=== PATIENT | female | born 1940 | race Caucasian/White ===

== ENCOUNTER 2016-11-06 03:47 | Observation (INO) | payer MEDICARE, OTHER ==
[~2016-11-06] VITALS: Ht 160 cm; Wt 57.3 kg
[2016-11-06] VITALS (14 sets, daily range): BP systolic 109–162; BP diastolic 56–75; PULSE 88–108; RESP 16–22; TEMP 97.8–100.2; O2SAT 94–100
[~2016-11-06 03:47] MED LIST: BISA5TAB PO; COLY4000S PO; FISH1000 PO; GLUCTAB OR; LORT5TAB PO; METH1TAB29 PO; PRIL40CA PO; TAB-TAB PO; VIT250TA PO; [UNRECOGNIZED DRUG - OTHER] PO
[2016-11-06] MEDS ORDERED: SODIUM CHLORID 0.9% 500 ML INJ 500 ML IV ONE ×2 (04:15→05:45)
[2016-11-06] MEDS ORDERED: SODIUM CHLORIDE 0.9% FLUSH 5 ML FLUSH IVF PRN ×2 (04:15→05:45)
--- NOTE | 2016-11-06 04:22 | PD ---
HPI Chief Complaint: Cold / Flu Symptoms Time Seen by Provider: 04:08 Travel History International Travel<30 days: No Contact w/Intl Traveler<30days: No Traveled to known affect area: No History of Present Illness HPI 75-year-old female presents to the emergency department from home by EMS transport for complaint of fever chills cough dizziness and shortness of breath. Patient states that she felt well all day on Tuesday went to bed feeling well awakened at 2 AM to go the bathroom and went to return to bed had a shaking chill with shortness of breath. Patient's been coughing up thick mucoid sputum. Patient states she did have the flu vaccine and the pneumonia vaccine. Patient has history of diabetes sigmoid cancer with partial colectomy and is known to have atherosclerotic disease of the aorta without aneurysm. Patient denies any abdominal pain. Patient denies any dysuria frequency urgency. Patient denies any sore throat or congestion. Since arriving to the emergency department she states her shortness of breath has resolved her chills have resolved and she is no longer coughing. Patient denies any chest pain. Patient unable to identify exacerbating or alleviating factors. Per EMS report patient was identified to have temperature elevation of 100.5F. PFSH Past Medical History Narrative Medical Lupus colon cancer with sigmoid resection vasovagal syncope diabetes GERD peptic ulcer disease tubal ligation vagotomy no alcohol use no tobacco use nursing notes reviewed Hx Anticoagulant Therapy: Yes (baby aspirin) Autoimmune Disease: Yes (LUPUS REMISSION) Cancer: Yes (CURRENT COLON) Cardiovascular Problems: No Chemotherapy: No Diabetes: Yes Diminished Hearing: No Endocrine: Yes GERD: Yes Genitourinary: No Immune Disorder: No Musculoskeletal: No Neurologic: No Psychiatric: No Reproductive: No Respiratory: No Immunizations Current: No Radiation Therapy: No Ulcer: Yes (PEPTIC ULCER DISEASE) : 1 Tubal Ligation: Yes Past Surgical History Abdominal Surgery: Yes (VAGOTOMY, ) Eye Surgery: Yes (RAMON. CATARACT EXTRACT/) Gynecologic Surgery: Yes (TUBAL LIG.) Other Surgery: Yes (COSMETIC SURG.) Social History Alcohol Use: No Tobacco Use: No Substance Use: No Allergies-Medications (Allergen,Severity, Reaction): Coded Allergies: Aspirin (Verified Allergy, Severe, 11/06/16) Codeine (Unverified Allergy, Severe, VOMITING, DIARRHEA, VERTIGO, 11/06/16) Collagen (Verified Allergy, Severe, 11/06/16) Morphine (Unverified Allergy, Severe, HALLUCINATIONS, 11/06/16) Sulfa (Verified Allergy, Severe, 11/06/16) Ibuprofen (Verified Allergy, Intermediate, UPSET STOMACH., 11/06/16) Reported Meds & Prescriptions Reported Meds & Active Scripts Active Reported Calcium 500 +D (Calcium Carbonate-Cholecalciferol) 500-400 Mg-Unit Tab 1 Tab PO TID [place]-3 Fish Oil/Vitamin (Fish Oil-Cholecalciferol) 1,000-1,000 Mg Cap 1 Cap PO BID Aspirin 81 Mg Tabdr 81 Mg PO DAILY Multiple Vitamin 1 Tab 1 Tab PO DAILY Prilosec (Omeprazole) 20 Mg Cap 20 Mg PO DAILY Metformin (Metformin HCl) 500 Mg Tab 500 Mg PO BIDPC With meals Simvastatin 20 Mg Tab 20 Mg PO DAILY Review of Systems Except as stated in HPI: all other systems reviewed are Neg General / Constitutional: Positive: Fever, Chills HENT: No: Congestion Respiratory: Positive: Cough, Shortness of Breath Gastrointestinal: No: Nausea, Vomiting, Diarrhea, Abdominal Pain Genitourinary: No: Flank Pain Musculoskeletal: No: Myalgias, Arthralgias Skin: No Rash Neurologic: Positive: Dizziness, No: Weakness Psychiatric: No: Anxiety Hematologic/Lymphatic: No: Lymph Node Enlargement Physical Exam Narrative GENERAL: Well-developed well-nourished female in no acute distress no respiratory distress SKIN: Warm and dry. HEAD: Normocephalic. EYES: No scleral icterus. No injection or drainage. NECK: Supple, trachea midline. No JVD or lymphadenopathy. CARDIOVASCULAR: Regular rate and rhythm without murmurs, gallops, or rubs. RESPIRATORY: Breath sounds equal bilaterally. No accessory muscle use. GASTROINTESTINAL: Abdomen soft, non-tender, nondistended. MUSCULOSKELETAL: No cyanosis, or edema. BACK: Nontender without obvious deformity. No CVA tenderness. Data Data Last Documented VS Vital Signs Date Time Temp Pulse Resp B/P Pulse Ox O2 Delivery O2 Flow Rate FiO2 11/06/16 04:30 104 20 95 Nasal Cannula 3 11/06/16 04:15 150/60 11/06/16 03:49 98.0 Orders Electrocardiogram (11/06/16 04:08) Basic Metabolic Panel (Bmp) (11/06/16 04:08) Complete Blood Count With Diff (11/06/16 04:08) Lactic Acid Sepsis Protocol (11/06/16 04:08) Influenzae A/B Antigen (11/06/16 04:08) Urinalysis - C+S If Indicated (11/06/16 04:08) Blood Culture (11/06/16 04:08) Chest, Single Ap (11/06/16 04:08) Ecg Monitoring (11/06/16 04:08) Iv Access Insert/Monitor (11/06/16 04:08) Oximetry (11/06/16 04:08) Oxygen Administration (11/06/16 04:08) Sodium Chloride 0.9% Flush (Ns Flush) (11/06/16 04:15) Troponin I (11/06/16 04:08) Sodium Chlorid 0.9% 500 Ml Inj (Ns 500 M (11/06/16 04:15) Sodium Chlor 0.9% 1000 Ml Inj (Ns 1000 M (11/06/16 04:15) Levofloxacin 750 Mg Premix Inj (Levaquin (11/06/16 04:30) Labs Laboratory Tests Test 11/06/16 04:30 White Blood Count 4.8 TH/MM3 Red Blood Count 4.51 MIL/MM3 Hemoglobin 12.9 GM/DL Hematocrit 39.0 % Mean Corpuscular Volume 86.6 FL Mean Corpuscular Hemoglobin 28.5 PG Mean Corpuscular Hemoglobin 32.9 % Concent Red Cell Distribution Width 11.9 % Platelet Count 208 TH/MM3 Mean Platelet Volume 7.2 FL Neutrophils (%) (Auto) 89.8 % Lymphocytes (%) (Auto) 7.7 % Monocytes (%) (Auto) 1.3 % Eosinophils (%) (Auto) 0.8 % Basophils (%) (Auto) 0.4 % Neutrophils # (Auto) 4.3 TH/MM3 Lymphocytes # (Auto) 0.4 TH/MM3 Monocytes # (Auto) 0.1 TH/MM3 Eosinophils # (Auto) 0.0 TH/MM3 Basophils # (Auto) 0.0 TH/MM3 CBC Comment DIFF FINAL Differential Comment Sodium Level 138 MEQ/L Potassium Level 3.8 MEQ/L Chloride Level 102 MEQ/L Carbon Dioxide Level 24.1 MEQ/L Anion Gap 12 MEQ/L Blood Urea Nitrogen 22 MG/DL Creatinine 0.72 MG/DL Estimat Glomerular Filtration 79 ML/MIN Rate Random Glucose 149 MG/DL Lactic Acid Level 2.4 mmol/L Calcium Level 9.1 MG/DL Troponin I LESS THAN 0.02 NG/ML MDM Medical Decision Making Medical Screen Exam Complete: Yes Emergency Medical Condition: Yes Medical Record Reviewed: Yes Interpretation(s) EKG: Sinus tachycardia rate [address] elevation or injury pattern change or ectopy noted Chest x-ray infiltrate right middle lung Lactic acid 2.4, elevated Metabolic panel remarkable for mild elevation of BUN 22 and random glucose of 149 otherwise anion gap and bicarbonate values are normal range and remainder of values in normal range Troponin I less than 0.22, not elevated CBC is automated differential remarkable for 89.8% neutrophilia Differential Diagnosis Pneumonia, sepsis, ACS, [place], PE, bowel obstruction, UTI Narrative Course Patient placed on behavior clinician IV access obtained specimens collected and sent for resulting lactic acid sepsis profile and blood cultures obtained CBC shows normal total white cell count however left shift with 89.8% neutrophils; flu test is negative; chest x-ray shows right middle lobe pneumonia /infiltrate; lactic acid is elevated at 2.4 and patient remains tachycardic therefore will admit patient for IV antibiotics anticipate may meet minimally sirs if not sepsis criteria; however at time of admission does not meet the criteria Sepsis Criteria SIRS Criteria (2 or more): Heart rate over 90 Sepsis Criteria (SIRS+source): Infect source susp/known (pneumonia) Physician Communication Physician Communication call placed to [facility] service Diagnosis Primary Impression: Pneumonia Qualified Code: J18.1 - Pneumonia of right middle lobe due to infectious organism Admitting Information Admitting Physician Requests: Admit Gracie Zimmerman MD Nov 06, 2016 04:22
[2016-11-06] MEDS ORDERED: LEVOFLOXACIN 750 MG PREMIX INJ 150 ML IV ONE (04:30)
[2016-11-06 04:41] LABS: AUTOMATED NEUTROPHIL # 4.3 TH/MM3 (1.8-7.7); BASOPHIL % 0.4 % (0.0-2.0); EOSINOPHIL % 0.8 % (0.0-4.0); HEMO FLAGS DIFF FINAL; LYMPH % 7.7 % (9.0-44.0); LYMPHOCYTE # 0.4 TH/MM3 (1.0-4.8); MEAN CELL VOLUME 86.6 FL (80.0-100.0); MEAN CORPUSCULAR HEMOGLOBIN 28.5 PG (27.0-34.0); MEAN CORPUSCULAR HGB CONC 32.9 % (32.0-36.0); MONO % 1.3 % (0.0-8.0); NEUT % 89.8 % (16.0-70.0); PLATELET COUNT 208 TH/MM3 (150-450); RED BLOOD COUNT 4.51 MIL/MM3 (4.00-5.30); RED CELL DISTRIBUTION WIDTH 11.9 % (11.6-17.2); WHITE BLOOD COUNT 4.8 TH/MM3 (4.0-11.0)
[2016-11-06 04:47] LABS: CHLORIDE 102 MEQ/L (98-107); POTASSIUM 3.8 MEQ/L (3.5-5.1); SODIUM (NA) 138 MEQ/L (136-145)
[2016-11-06 04:50] LABS: ANION GAP 12 MEQ/L (5-15); BICARBONATE 24.1 MEQ/L (21.0-32.0); BLOOD UREA NITROGEN 22 MG/DL (7-18)
[2016-11-06 04:53] LABS: GLOMERULAR FILTRATION RATE 79 ML/MIN (>89)
--- NOTE | 2016-11-06 05:08 | RADHPO ---
EXAM DATE/TIME: 11/06/2016 04:31 [facility] COMPARISON: No previous studies available for comparison. INDICATIONS : Fever. MEDICAL HISTORY : Ulcers. Gastroesophageal reflux disease. Carcinoma, colon. Diabetes SURGICAL HISTORY : Tubal ligation. Vagotomy, Gastric resection ENCOUNTER: Initial ACUITY: 1 day PAIN SCORE: 7/10 LOCATION: Bilateral chest FINDINGS: There is an ill-defined infiltrate in the right midlung and there is mild thickening of the minor fis sure in the right lung. Infiltrate measures in excess of 5 cm in width. The left lung is clear. Th e hemidiaphragms are well delineated. The heart is normal in size and configuration. Multiple hemoc lips the epigastric region. CONCLUSION: Non-consolidative infiltrate in the mid right lung. No evidence of pneumothorax. Recommend followup imaging to complete radiographic resolution. Kamran Ivory MD on November 06, 2016 at 5:05 Board Certified Radiologist. This report was verified electronically.
[2016-11-06] MEDS ORDERED: METF500T PO (05:13)
[2016-11-06] MEDS ORDERED: SIMV20TA PO (05:13)
[2016-11-06] MEDS ORDERED: PRIL20CA9 PO (05:13)
[2016-11-06] MEDS ORDERED: ASPI1TAB69 PO (05:14)
[2016-11-06] MEDS ORDERED: MULTTAB67 PO (05:14)
[2016-11-06] MEDS ORDERED: CALC1TAB12 PO (05:15)
[2016-11-06] MEDS ORDERED: OMEGCAP PO (05:15)
[2016-11-06 05:38] LABS: BLOOD, URINE NEG (NEG); GLUCOSE,URINE NEG (NEG); KETONE, URINE NEG (NEG); NITRITE,URINE NEG (NEG)
[2016-11-06 05:40] LABS: URINE COLOR YELLOW (YELLW/STRAW)
[2016-11-06 05:42] LABS: COMMENT (UR) CULT NOT INDICATED; CULTURE IF INDICATED CULT NOT INDICATED; RBC, URINE 0-2 /hpf (0-3); SQUAMOUS EPITHELIAL CELL URINE 0-5 /hpf (0-5); WBC, URINE 0-2 /hpf (0-5)
[2016-11-06] MEDS ORDERED: ACETAMINOPHEN 325 MG TAB PO PRN (05:45)
[2016-11-06] MEDS ORDERED: DEXTROSE 50% IN WATER 50 ML VIAL(D50) IV PUSH PRN (05:45)
[2016-11-06] MEDS ORDERED: SODIUM CHLORIDE 0.9% FLUSH 5 ML FLUSH FLUSH PRN (05:45)
[2016-11-06] MEDS ORDERED: RESP: ALBUTEROL 2.5 MG/IPRATROPIUM 0.5 MG NEB (PRN) NEB (05:45)
[2016-11-06] MEDS ORDERED: GLUCAGON 1 MG/ML VIAL OTHER PRN (05:45)
[2016-11-06] MEDS ORDERED: ONDANSETRON HCL 4 MG/2 ML VIAL IVP PRN (05:45)
[2016-11-06] MEDS ORDERED: BISACODYL 10 MG SUPP PR PRN (05:45)
[2016-11-06] MEDS: INSULIN ASPART SUPPLEMENTAL SCALE SQ SCH ×4 (06:35→21:00)
[2016-11-06 06:36] LABS: LACTIC ACID GHOST NOT REPORTABLE
[2016-11-06] MEDS: SODIUM CHLOR 0.9% 1000 ML INJ 1,000 ML IV SCH ×3 (07:05→23:00)
[2016-11-06] MEDS: SODIUM CHLORIDE 0.9% FLUSH 5 ML FLUSH FLUSH SCH ×2 (07:21→20:59)
[2016-11-06] MEDS ORDERED: SODIUM CHLORIDE 0.9% FLUSH 5 ML FLUSH IVF SCH (09:00)
[2016-11-06] MEDS: PRAVASTATIN SOD 40 MG TAB PO SCH (10:31)
[2016-11-06] MEDS: MULTIVITAMIN TAB PO SCH (10:31)
[2016-11-06] MEDS: guaiFENesin E.R. 600 MG TAB PO SCH ×2 (10:31→20:59)
--- NOTE | 2016-11-06 10:55 | HHI.HP ---
[facility] Service [facility] Primary Care Physician Floyd Mcdermott Do, MD Admission Diagnosis pneumonia Diagnoses: (1) Right pulmonary infiltrate on CXR Diagnosis: Principal (2) Dyspnea Diagnosis: Principal Chief Complaint: Dyspnea Travel History International Travel<30 Days: No Contact w/Intl Traveler <30 Da: No Traveled to Known Affected Are: No History of Present Illness 75-year-old female with history of lupus, colon cancer who presented to hospital because acute onset of dyspnea. Patient states that she has normal state of health last night when she went to bed. She got up at approximately 1: 00 in the morning go to the bathroom. She went back to bed and she laid down approximate one hour after that she has signed onset of chills and shortness of breath. She had her called the ambulance who picked her was bringing her to the hospital. Patient states that she coughed one time in the ambulance and brought up some yellow thick phlegm and after that she was back to her baseline. Upon arrival emergency department she did not have any fever, she did not have any leukocytosis. She has some mild lactic acidosis. Chest x-ray did indicate right middle lobe infiltrate. Because of those reasons is recommended by the ER physician that the patient be observed in the hospital. At the time evaluating the patient she is resting in bed comfortably. She is not requiring any O2 supplementation maintain O2 saturation's. She is breathing well. No longer experiencing any shortness of breath or dyspnea. Has not experienced any fever or chills. Review of Systems Constitutional: COMPLAINS OF: Chills, DENIES: Diaphoretic episodes, Fatigue, Fever, Weight gain, Weight loss, Dizziness, Change in appetite, Night Sweats Eyes: DENIES: Blurred vision, Diplopia, Eye inflammation, Eye pain, Vision loss , Double Vision Ears, nose, mouth, throat: DENIES: Vertigo, Nasal discharge, Throat pain, Ear Pain, Running Nose, Sinus Pain Respiratory: COMPLAINS OF: Shortness of breath, DENIES: Apneas, Cough, Snoring , Wheezing, Hemoptysis, Sputum production Cardiovascular: DENIES: Chest pain, Palpitations, Syncope, Dyspnea on Exertion , Lower Extremity Edema, Orthopnea Gastrointestinal: DENIES: Abdominal pain, Black stools, Bloody stools, Constipation, Diarrhea, Nausea, Vomiting, Difficulty Swallowing, Anorexia Neurologic: DENIES: Abnormal gait, Headache, Localized weakness, Paresthesias, Speech Problems, Tremor, Poor Balance Past Family Social History Past Medical History History colon cancer Lupus in remission Gastric ulcer disease 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 Past Surgical History History of cataract surgery Tubal ligation Partial gastrectomy Partial colectomy Right great toe repair Vagotomy Reported Medications Reported Meds & Active Scripts Active Reported Calcium 500 +D (Calcium Carbonate-Cholecalciferol) 500-400 Mg-Unit Tab 1 Tab PO TID [place]-3 Fish Oil/Vitamin (Fish Oil-Cholecalciferol) 1,000-1,000 Mg Cap 1 Cap PO BID Aspirin 81 Mg Tabdr 81 Mg PO DAILY Multiple Vitamin 1 Tab 1 Tab PO DAILY Prilosec (Omeprazole) 20 Mg Cap 20 Mg PO DAILY Metformin (Metformin HCl) 500 Mg Tab 500 Mg PO BIDPC With meals Simvastatin 20 Mg Tab 20 Mg PO DAILY Allergies: Coded Allergies: Aspirin (Verified Allergy, Severe, 11/06/16) Codeine (Unverified Allergy, Severe, VOMITING, DIARRHEA, VERTIGO, 11/06/16) Collagen (Verified Allergy, Severe, 11/06/16) Morphine (Unverified Allergy, Severe, HALLUCINATIONS, 11/06/16) Sulfa (Verified Allergy, Severe, 11/06/16) Ibuprofen (Verified Allergy, Intermediate, UPSET STOMACH., 11/06/16) Family History Reviewed is significant for heart disease in mother, father, brothers Social History Patient eyes any tobacco, alcohol or illicit drugs Physical Exam Vital Signs Vital Signs Date Time Temp Pulse Resp B/P Pulse Ox O2 Delivery O2 Flow Rate FiO2 11/06/16 10:30 99 Nasal Cannula 3.00 11/06/16 09:00 99.4 105 22 122/64 99 11/06/16 07:06 98.6 102 18 109/58 99 Nasal Cannula 2 11/06/16 06:45 98.5 101 18 122/67 100 Nasal Cannula 2 11/06/16 06:45 100 Nasal Cannula 2 11/06/16 05:45 104 18 128/66 98 Nasal Cannula 3 11/06/16 05:42 95 Nasal Cannula 3.00 11/06/16 04:45 108 18 148/65 97 Nasal Cannula 3 11/06/16 04:30 104 20 95 Nasal Cannula 3 11/06/16 04:15 105 18 150/60 97 Nasal Cannula 3 11/06/16 03:55 94 Nasal Cannula 3 11/06/16 03:55 94 Nasal Cannula 3 11/06/16 03:49 98.0 97 20 162/75 94 Physical Exam GENERAL: Well-developed, well-nourished, in no acute distress. alert and orientated HEENT: Head is normocephalic without any lesions or masses noted. Facial features are symmetric. Eyes: Pupils equal round reactive to light. Extraocular muscles are intact. Conjunctivae were clear. Oropharyngeal: Pharynx without any erythema edema. Tongue is midline without deviation. Buccal mucosa is moist without any masses or lesions NECK: Supple without any masses. Trachea midline no deviation. No JVD, no bruits are appreciated CARDIAC: Regular rhythm, regular rate. S1/S2 are heard. No murmurs gallops or rubs. LUNGS: Clear to auscultation bilaterally. No wheeze, rhonchi or rales. No use of accessory muscles on inspiration or expiration. ABDOMEN: Soft, nontender. Nondistended. Bowel sounds heard in all 4 quadrants. No organomegaly or masses. Negative rebound, negative guarding EXTREMITIES: No edema, pulses are equal bilaterally. No cyanosis or clubbing NEUROLOGY: Mood and affect appear appropriate. Cranial nerves II through XII grossly intact. Muscle strength 5/5 in upper and lower extremities bilaterally. Deep tendon reflexes are 2+ in upper and lower extremities bilaterally. Laboratory Laboratory Tests Test 11/06/16 11/06/16 11/06/16 04:30 05:25 07:18 White Blood Count 4.8 Red Blood Count 4.51 Hemoglobin 12.9 Hematocrit 39.0 Mean Corpuscular Volume 86.6 Mean Corpuscular Hemoglobin 28.5 Mean Corpuscular Hemoglobin 32.9 Concent Red Cell Distribution Width 11.9 Platelet Count 208 Mean Platelet Volume 7.2 Neutrophils (%) (Auto) 89.8 Lymphocytes (%) (Auto) 7.7 Monocytes (%) (Auto) 1.3 Eosinophils (%) (Auto) 0.8 Basophils (%) (Auto) 0.4 Neutrophils # (Auto) 4.3 Lymphocytes # (Auto) 0.4 Monocytes # (Auto) 0.1 Eosinophils # (Auto) 0.0 Basophils # (Auto) 0.0 CBC Comment DIFF FINAL Differential Comment Sodium Level 138 Potassium Level 3.8 Chloride Level 102 Carbon Dioxide Level 24.1 Anion Gap 12 Blood Urea Nitrogen 22 Creatinine 0.72 Estimat Glomerular Filtration 79 Rate Random Glucose 149 Lactic Acid Level 2.4 1.3 Calcium Level 9.1 Troponin I LESS THAN 0.02 Urine Color YELLOW Urine Turbidity CLEAR Urine pH 6.0 Urine Specific [place] 1.014 Urine Protein NEG Urine Glucose (UA) NEG Urine Ketones NEG Urine Occult Blood NEG Urine Nitrite NEG Urine Bilirubin NEG Urine Leukocyte Esterase TRACE Urine RBC 0-2 Urine WBC 0-2 Urine Squamous Epithelial 0-5 Cells Urine Bacteria NONE Microscopic Urinalysis Comment CULT NOT INDICATED Date/Time Procedure Status Source Growth 11/06/16 04:40 Influenza Types A,B Antigen (CARLOS) - Final Complete Nasal Washing NEGATIVE FOR FLU A AND B ANTIGEN.... 11/06/16 04:35 Aerobic Blood Culture Received Blood Peripheral Pending 11/06/16 04:35 Anaerobic Blood Culture Received Blood Peripheral Pending Result Diagram: 11/06/16 0430 11/06/16 0430 Assessment and Plan Assessment and Plan Right middle lung infiltrate with presenting symptom of shortness of breath Patient started on Levaquin Duo nebs as needed --Obtain CT of chest without contrast to evaluate infiltrate Diabetes Continue home medications Diabetic diet DVT prevention Sequential compression devices Written by Naveen Costa PA-C, acting as scribe for Dr. Randolph on 11/06/16 at 1135. The documentation accurately reflects the work and decisions performed face-to- face by Dr. Randolph on 11/06/16 at 1135. Problem Qualifiers (1) Dyspnea: Qualified Code: R06.00 - Dyspnea, unspecified type Naveen Costa Nov 06, 2016 10:55 Diet: Healthy heart diet Medications per medication reconciliation Follow-up primary medical doctor in one week Problem Qualifiers (1) Dyspnea: Qualified Code: R06.00 - Dyspnea, unspecified type Naveen Costa Nov 06, 2016 10:55
--- NOTE | 2016-11-06 14:22 | EKG ---
Date Performed: 11/06/2016 Time Performed: 04:51:40 PTAGE: 75 years EKG: Sinus tachycardia PREVIOUS TRACING : 05/04/2011 09.20 Compared to the previous tracing, rate has increased DOCTOR: Allen Donaldson Interpretating Date/Time 11/06/2016 14:20:21
--- NOTE | 2016-11-06 14:34 | RADHPO ---
EXAM DATE/TIME: 11/06/2016 13:39 [facility] COMPARISON: No previous studies available for comparison. INDICATIONS : Shortness of breath today. RADIATION DOSE: 6.17 CTDIvol (mGy) MEDICAL HISTORY : Carcinoma, colon. Gastroesophageal reflux disease. Lupus. diabetes SURGICAL HISTORY : Tubal ligation. ENCOUNTER: Initial ACUITY: 1 day PAIN SCALE: 0/10 LOCATION: Bilateral chest TECHNIQUE: Volumetric scanning of the chest was performed. Using automated exposure control and adjustment of t he mA and/or kV according to patient size, radiation dose was kept as low as reasonably achievable to obtain optimal diagnostic quality images. FINDINGS: The study is abnormal. There are air bronchograms in the right midlung consistent with inflammatory process. The left lung is hyperinflated but clear. There is no axillary adenopathy. There is no radiographically significant mediastinal adenopathy. There is a trace pericardial effusion evident. Surgical clips are seen about the epigastrium. Portion of liver and spleen identified are free of fo keena defects. Review of bone windows reveals only degenerative changes. On the most superior image of the chest, I do have a look at the left true vocal cord. This appears to be displaced and fixed towards the midline. CONCLUSION: 1. 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 2. Correlation is suggested. 3. Dense consolidative changes with air bronchograms in the right midlung probably an inflammatory p rocess. I don't see ancillary signs of malignancy. Magdaleno Diaz MD FACR on November 06, 2016 at 14:15 Board Certified Radiologist. This report was verified electronically.
[2016-11-06] MEDS ORDERED: diphenhydrAMINE HCL 25 MG CAP PO PRN (18:15)
[2016-11-06] MEDS: PANTOPRAZOLE SOD 40 MG DELAYED RELEASE TAB PO SCH (18:32)
[2016-11-07] VITALS: BP 112/60; PULSE 84; RESP 20; TEMP 98.3; O2SAT 96
[2016-11-07 04:00] VITALS: BP 121/61; PULSE 80; RESP 20; TEMP 97.4; O2SAT 100
[2016-11-07] MEDS ORDERED: LEVOFLOXACIN 750 MG PREMIX INJ 150 ML IV SCH (06:00)
[2016-11-07] MEDS: INSULIN ASPART SUPPLEMENTAL SCALE SQ SCH ×2 (06:49→11:00)
[2016-11-07 07:00] LABS: AUTOMATED NEUTROPHIL # 9.4 TH/MM3 (1.8-7.7); BASOPHIL % 0.1 % (0.0-2.0); EOSINOPHIL # 0.1 TH/MM3 (0-0.4); EOSINOPHIL % 0.5 % (0.0-4.0); HEMATOCRIT 32.2 % (35.0-46.0); LYMPH % 11.6 % (9.0-44.0); LYMPHOCYTE # 1.3 TH/MM3 (1.0-4.8); MEAN CELL VOLUME 87.7 FL (80.0-100.0); MEAN CORPUSCULAR HEMOGLOBIN 28.9 PG (27.0-34.0); MEAN CORPUSCULAR HGB CONC 32.9 % (32.0-36.0); MONO % 6.4 % (0.0-8.0); NEUT % 81.4 % (16.0-70.0); PLATELET COUNT 182 TH/MM3 (150-450); RED BLOOD COUNT 3.67 MIL/MM3 (4.00-5.30); RED CELL DISTRIBUTION WIDTH 11.9 % (11.6-17.2); WHITE BLOOD COUNT 11.5 TH/MM3 (4.0-11.0)
[2016-11-07 07:11] LABS: CHLORIDE 107 MEQ/L (98-107); HEMO FLAGS DIFF FINAL; SODIUM (NA) 142 MEQ/L (136-145)
[2016-11-07 07:21] LABS: ANION GAP 10 MEQ/L (5-15); BICARBONATE 25.2 MEQ/L (21.0-32.0)
[2016-11-07 07:26] LABS: ALKALINE PHOSPHATASE 40 U/L (45-117); ALT (GPT) 15 U/L (10-53); AST (GOT) 12 U/L (15-37); BLOOD UREA NITROGEN 10 MG/DL (7-18); GLOMERULAR FILTRATION RATE 113 ML/MIN (>89); TOTAL BILIRUBIN ADULT 0.5 MG/DL (0.2-1.0)
[2016-11-07 07:53] VITALS: O2SAT 96
[2016-11-07 08:00] VITALS: BP 115/66; PULSE 79; PULSE 81; RESP 20; TEMP 98.3; O2SAT 97
[2016-11-07] MEDS: SODIUM CHLORIDE 0.9% FLUSH 5 ML FLUSH FLUSH SCH (08:46)
[2016-11-07] MEDS: SODIUM CHLOR 0.9% 1000 ML INJ 1,000 ML IV SCH (08:48)
[2016-11-07] MEDS: PRAVASTATIN SOD 40 MG TAB PO SCH (08:48)
[2016-11-07] MEDS: MULTIVITAMIN TAB PO SCH (08:48)
[2016-11-07] MEDS: PANTOPRAZOLE SOD 40 MG DELAYED RELEASE TAB PO SCH (08:48)
[2016-11-07] MEDS: guaiFENesin E.R. 600 MG TAB PO SCH (08:48)
[2016-11-07] MEDS ORDERED: LEVOFLOXACIN 750 MG TAB PO SCH (10:00)
[2016-11-07] MEDS ORDERED: predniSONE 20 MG TAB PO ONE (10:00)
--- NOTE | 2016-11-07 10:00 | HHI.PR ---
Subjective Remarks Patient seen and examined today with Dr. Randolph. Patient states that she's feeling much better. Patient wants to go home. I did review results of CT scan and labs with the patient. Objective Vitals Vital Signs Date Time Temp Pulse Resp B/P Pulse Ox O2 Delivery O2 Flow Rate FiO2 11/07/16 08:00 98.3 79 20 115/66 97 11/07/16 08:00 81 11/07/16 07:53 96 21 11/07/16 04:00 97.4 80 20 121/61 100 11/07/16 00:00 98.3 84 20 112/60 96 11/06/16 20:00 90 11/06/16 20:00 100.2 88 16 112/56 95 11/06/16 19:43 94 21 11/06/16 16:00 97.8 93 18 121/60 97 11/06/16 12:00 98.3 88 18 123/67 98 11/06/16 10:30 99 Nasal Cannula 3.00 I/O 11/06/16 11/06/16 11/06/16 11/07/16 11/07/16 11/07/16 07:00 15:00 23:00 07:00 15:00 23:00 Intake Total 650 ml 2150 ml 542 ml 1130 ml Balance 650 ml 2150 ml 542 ml 1130 ml Intake Oral 650 ml 240 ml 240 ml IV Total 650 ml 1500 ml 302 ml 890 ml # Voids 2 3 1 # Bowel Movements 0 0 Result Diagram: 11/07/16 0602 11/07/16 0602 Objective Remarks GENERAL: Well-developed, well-nourished, in no acute distress. alert and orientated HEENT: Head is normocephalic without any lesions or masses noted. Facial features are symmetric. Eyes: Extraocular muscles are intact. Conjunctivae were clear. NECK: Supple without any masses. Trachea midline no deviation. No JVD, CARDIAC: Regular rhythm, regular rate. S1/S2 are heard. No murmurs gallops or rubs. LUNGS: Clear to auscultation bilaterally. No wheeze, rhonchi or rales. No use of accessory muscles on inspiration or expiration. ABDOMEN: Soft, nontender. Nondistended. Bowel sounds heard in all 4 quadrants. No organomegaly or masses. Negative rebound, negative guarding EXTREMITIES: No edema, pulses are equal bilaterally. No cyanosis or clubbing NEUROLOGY: Mood and affect appear appropriate. Cranial nerves II through XII grossly intact. Moving all extremities, speech is clear Urinary Catheter: No Vascular Central Line Catheter: No A/P Assessment and Plan Right middle lung infiltrate with presenting symptom of shortness of breath Continue Levaquin Duo nebs as needed --CT scan does show dense consolidation in the right middle lobe which looks inflammatory Start prednisone Diabetes Continue home medications Diabetic diet DVT prevention Sequential compression devices Written by Naveen Costa PA-C, acting as scribe for Dr. Randolph on 11/07/16 at 1215. The documentation accurately reflects the work and decisions performed face-to- face by Dr. Randolph on 11/07/16 at 1215. Discharge Planning Discharge home in stable condition Activity: Ad evan. Diet: Diabetic diet Medications per medication reconciliation Follow-up with primary medical doctor in one week Naveen Costa Nov 07, 2016 10:00
[2016-11-07 12:00] VITALS: BP 151/72; PULSE 78; RESP 18; TEMP 98.3; O2SAT 100
[2016-11-07] MEDS ORDERED: LEVA750T PO (12:19)
[2016-11-07] MEDS ORDERED: PRED5PAK PO (12:19)
--- NOTE | 2016-11-07 12:19 | HHI.DCPOC ---
Discharge Care Plan Diagnosis: (1) Dyspnea (2) Right pulmonary infiltrate on CXR Goals to Promote Your Health * To prevent worsening of your condition and complications * To maintain your health at the optimal level Directions to Meet Your Goals Take your medications as prescribed Follow your dietary instruction Follow activity as directed Keep your appointments as scheduled Take your immunizations and boosters as scheduled If your symptoms worsen call your PCP, if no PCP go to Urgent Care Center or Emergency Room Smoking is Dangerous to Your Health. Avoid second hand smoke Call the 24-hour hour crisis hotline for domestic abuse at Naveen Costa Nov 07, 2016 12:19
== END 2016-11-07 13:27 | disposition home or self-care (01) ==
LOC: PHED 03:47 → PHEDA 05:33 → PH3A 08:49
PROVIDERS: ADMIT Family Medicine; ATTEND Family Medicine
DX: J18.1 Lobar pneumonia, unspecified organism (principal); E11.9 Type 2 diabetes mellitus without complications; E87.2 Acidosis; K21.9 Gastro-esophageal reflux disease without esophagitis; R42 Dizziness and giddiness; Z85.038 Personal history of other malignant neoplasm of large intestine; Z87.11 Personal history of peptic ulcer disease; Z90.3 Acquired absence of stomach [part of]
CPT/HCPCS: 71010; 71250; 80048; 80053; 81001; 82948; 83605; 84484; 85025; 87040; 87804; 93005; 96365; 99285; G0378; J1815; J1956; J7030; J7040; J7512